=== PATIENT | female | born 1940 | race Caucasian/White ===

== ENCOUNTER 2023-03-28 11:34 | Emergency (ER) | payer OTHER, SELFPAY ==
[2023-03-28 11:50] VITALS: BP 108/63; PULSE 102; RESP 20; TEMP 37.2; O2SAT 97; BMI 24.8
--- NOTE | 2023-03-28 12:36 | ED.GENADULT ---
HPI - General Adult General Chief complaint: Skin/Abscess/Foreign Body Stated complaint: L arm infection Time Seen by Provider: 03/28/23 12:14 History of Present Illness HPI narrative: This 82-year-old female comes in because of redness and warmth in her left upper extremity that began this morning. She states that she had some nausea at that time but feels better now in that regard. She does have a history of breast cancer and had surgery about 30 years ago leaving her with lymphedema in the left upper extremity. She states that she has had cellulitis in the past. She arrives with normal vital signs. She has not had any fevers. She does have erythema in her left upper extremity extending from just distal from the axilla region past her left elbow. She does not have any chest pain or shortness of breath. Related Data Previous Rx's Medication Instructions Recorded cephalexin 500 mg capsule 500 mg PO TID 7 days #21 caps 03/28/23 Allergies Allergy/AdvReac Type Severity Reaction Status Date / Time No Known Drug Allergies Allergy Verified 03/28/23 11:49 Review of Systems Status of ROS: Reports: 10 or more systems reviewed and unremarkable except as noted in History and below Narrative: Constitutional: No fevers, no weight gain or loss. Eyes: No discharge. No vision changes. HENT: No congestion, no sore throat, no ear pain. Cardiovascular: No chest pain, no palpitations. Respiratory: No shortness of breath, no wheezes, no cough. Gastrointestinal: No abdominal pain, no vomiting, no diarrhea. Genitourinary: No dysuria, no hematuria. Musculoskeletal: Normal range of motion. Chronic left upper extremity lymphedema secondary to breast cancer surgery. Skin: No rashes, no pruritis. Redness and warmth in the left upper extremity. Neurological: No dizziness, weakness, sensory change, speech change. Endo/Heme/Allergies: No bruising or bleeding. No polydipsia. Pysch: no suicidality, no anxiety, no insomnia. All other systems reviewed and are negative. PFSH PFSH Social History Smoking Status: Former smoker Do you use any of these nicotine containing products: None Second hand tobacco smoke exposure: No How often do you have a drink containing alcohol: 2-4 times a month How many standard drinks containing alcohol do you have on a typical day: 1 or 2 How often do you have six or more drinks on one occasion: Never AUDIT-C Alcohol total score: 2 Non-prescribed substance use: denies use service: No Exam Narrative: Exam Narrative: Constitutional: Well-developed, well-nourished, no acute distress. HEENT: Normocephalic, atraumatic. Neck: Normal range of motion. Nontender. Supple. Heart: Regular. No murmurs. Normal rate. Intact distal pulses. Lungs: Clear to auscultation. No chest discomfort. No wheezes, rhonchi, or rales. Abdomen: Normal bowel sounds. Nontender. No rebound tenderness. Genitalia: Deferred. Back: No midline tenderness. Normal range of motion. Extremities: Normal range of motion. No injury. Erythema and warmth typical of cellulitis involving the left upper extremity. The erythema is involving most of her upper left arm from just distal of the axillary region extending to the area of her elbow and a bit into her forearm. Skin: Intact. No rash. Warm. No erythema or pallor. Neurologic: No altered sensation. No weakness. Alert and oriented. Psychiatric: No suicidality. No anxiety or depression. No insomnia. Nursing notes and vitals signs are reviewed. Const: Vital Signs, click to edit/add: Vital Signs - 24 hr 03/28/23 11:50 Temperature 99 F Pulse Rate [Pulse Oximeter] 102 H Respiratory Rate 20 Blood Pressure [Ri ght Upper Arm] 108/63 Pulse Oximetry 97 Oxygen Delivery Me thod Room Air Course Vital Signs Vital signs: Initial Vital Signs Temperature 99 F 03/28/23 11:50 Temperature Source Temporal Artery Scan 03/28/23 11:50 Pulse Rate 102 H 03/28/23 11:50 Pulse Rhythm Regular 03/28/23 11:50 Respiratory Rate 20 03/28/23 11:50 Blood Pressure 108/63 03/28/23 11:50 Blood Pressure Mean 78 03/28/23 11:50 Blood Pressure Position Supine 03/28/23 11:50 Pulse Oximetry 97 03/28/23 11:50 Oxygen Delivery Method Room Air 03/28/23 11:50 Vital Signs Temperature 99 F 03/28/23 11:50 Pulse Rate 102 H 03/28/23 11:50 Respiratory Rate 20 03/28/23 11:50 Blood Pressure 108/63 03/28/23 11:50 Pulse Oximetry 97 03/28/23 11:50 Oxygen Delivery Method Room Air 03/28/23 11:50 Temperature 99 F 03/28/23 11:50 Pulse Rate 102 H 03/28/23 11:50 Respiratory Rate 20 03/28/23 11:50 Blood Pressure 108/63 03/28/23 11:50 Pulse Oximetry 97 03/28/23 11:50 Oxygen Delivery Method Room Air 03/28/23 11:50 Medical Decision Making MDM Narrative Medical decision making narrative: This patient awoke this morning with erythema in her left upper extremity. She has had cellulitis in the past in this area which is predisposed to such because of chronic lymphedema. She does not have any systemic symptoms. I did discuss options of checking labs and imaging. She is agreeable to an injection of Rocephin intramuscularly and prescription for Keflex. I did describe signs and symptoms that would indicate a need for return and re-evaluation. Discharge Plan Discharge Clinical Impression: Cellulitis Condition: Unchanged Additional Instructions: Take medication as prescribed. Follow up with MD or return if not improving or worsening symptoms happen. Prescriptions: New cephalexin 500 mg capsule 500 mg PO TID 7 Days Qty: 21 0RF Stand Alone Forms: [facility] Info Instructions
[2023-03-28] MEDS: cefTRIAXone 1 GM VIAL IM (13:02)
[2023-03-28] MEDS: LIDOCAINE 1% 5 ml (pf) 5 ML VIAL 2.1 ML IM (13:03)
== END 2023-03-28 13:07 | disposition home or self-care (01) ==
PROVIDERS: Emergency Provider Emergency Medicine Emergency Medical Services; PCP Family Medicine
DX: L03.114 Cellulitis of left upper limb (principal)
CPT/HCPCS: 96372; 99283; 99284; J0696

== ENCOUNTER 2024-10-20 10:06 | Outpatient (CLI) | payer OTHER, SELFPAY | END 2024-10-20 10:07 | disposition home or self-care (01) | PROVIDERS: PCP Physician Assistant Medical; Visit Provider Physician Assistant Medical | DX: E03.9 Hypothyroidism, unspecified (principal); M81.0 Age-related osteoporosis without current pathological fracture; Z13.6 Encounter for screening for cardiovascular disorders; Z13.29 Encounter for screening for other suspected endocrine disorder; Z13.9 Encounter for screening, unspecified | CPT/HCPCS: 80053; 80061; 84439; 84443 ==

== ENCOUNTER 2024-12-25 08:23 | Outpatient (CLI) | payer OTHER, SELFPAY | END 2024-12-25 08:24 | disposition home or self-care (01) | LOC: FRMREF 08:26 | PROVIDERS: PCP Physician Assistant Medical; Visit Provider Nurse Practitioner Family | DX: R06.02 Shortness of breath (principal) | CPT/HCPCS: 83880 ==

== ENCOUNTER 2024-12-29 14:20 | Outpatient (CLI) | payer OTHER, SELFPAY | END 2024-12-29 14:21 | disposition home or self-care (01) | LOC: NFLDREF 12-31 02:38 | PROVIDERS: PCP Physician Assistant Medical; Referring Provider Physician Assistant Medical; Visit Provider Nurse Practitioner Family | DX: I50.9 Heart failure, unspecified (principal) | CPT/HCPCS: 83880 ==

== ENCOUNTER 2025-01-21 11:50 | Outpatient (CLI) | payer OTHER, SELFPAY | END 2025-01-21 11:51 | disposition home or self-care (01) | LOC: NFLDREF 01-26 15:57 | PROVIDERS: PCP Physician Assistant Medical; Referring Provider Physician Assistant Medical; Visit Provider Physician Assistant Medical | DX: E03.9 Hypothyroidism, unspecified (principal) | CPT/HCPCS: 84439; 84443 ==

== ENCOUNTER 2025-02-03 12:37 | Outpatient (CLI) | payer OTHER, SELFPAY ==
--- NOTE | 2025-02-03 13:00 | CRLHL7_ITS ---
For Patients: As a result of the Century Cures Act, medical imaging exams and procedure reports are released immediately into your electronic medical record. You may view this report before your referring provider. If you have questions, please contact your health care provider. INDICATION: UNILATERAL RIGHT SCREENING MAMMOGRAM, ASYMPTOMATIC 84 Y/O FEMALE COMPARISON: 01/08/2024, 12/25/2021, 12/22/2020 TECHNIQUE: Digital mammogram in CC and MLO projections including computer-aided detection (CAD) and tomosynthesis. BREAST COMPOSITION: The breasts are heterogeneously dense, which may obscure small masses. FINDINGS: No suspicious findings. ASSESSMENT: BI-RADS 1 Negative RECOMMENDATION: Annual screening mammogram. A lay language report of this examination will be provided to the patient. Dictated by: Omar Meyers MD @ 02/05/2025 11:46:40 (Electronically Signed)
--- NOTE | 2025-02-03 13:30 | CRLHL7_ITS ---
For Patients: As a result of the Century Cures Act, medical imaging exams and procedure reports are released immediately into your electronic medical record. You may view this report before your referring provider. If you have questions, please contact your health care provider. XR DXA Bone Mineral Density (BMD) Reason for exam: Age-related osteoporosis without current pathological fracture. Current height (in): 60.2. Weight (lb): 133.8. Menopause age: 41. Ethnicity: White. 1. Have you had a previous hip or vertebral fracture? No. 2. Have you had any fractures during your adult life which did not result from significant trauma (e.g., auto accident)? No. 3. Did either of your parents have a hip fracture? No. 4. Do you smoke? No. 5. Have you ever taken Glucocorticoids? No. 6. Do you have rheumatoid arthritis? No. 7. Do you have secondary osteoporosis? No. 8. Do you drink 3 or more alcoholic drinks per day? No. 9. Are you being treated for osteoporosis? No. 10. Have you ever taken any of the following medications: Actonel, Evista, Fosamax, Miacalcin, Reclast, Boniva, Forteo, HRT (i.e. estrogen/hormone therapy), Protelos, Prolia, Vitamin D, Calcium, other ??? please specify. ANSWER: Yes, Evista, Fosamax. 11. Do you have any of the following medical conditions: Anorexia or bulimia, asthma or emphysema, end stage renal disease, hyperparathyroidism, any seizure disorders, cancer, inflammatory bowel diseases, hysterectomy, other ??? please specify. ANSWER: No. 12. What was your maximum height (inches)? 63. 13. Do you perform weight bearing exercise regularly? No. 14. Do you regularly consume dairy products? No. 15. Do you drink caffeinated beverages? Yes. 16. At what age did your period start? 14. 17. Are you premenopausal? No. 18. How many full term pregnancies have you had? 4. 19. Have you ever missed your period for more than 6 months in a row (not including or menopause)? No. TECHNIQUE: Bone mineral density study was performed using the [employer]. FINDINGS: The results of the study expressed as bone mineral density (BMD) are as follows: Lumbar spine L1 to L4: BMD: 1.018 g/cm2. T-score: -0.3. Z-score: 2.6. Neck Left: BMD: 0.528 g/cm2. T-score: -2.9. Z-score: -0.4. Right: BMD: 0.551 g/cm2. T-score: -2.7. Z-score: -0.2. Total Left: BMD: 0.689 g/cm2. T-score: -2.1. Z-score: 0.2. Right: BMD: 0.746 g/cm2. T-score: -1.6. Z-score: 0.6. IMPRESSION: Osteoporosis. Omar Meyers M.D. Diagnostic Radiologist [email or web address] / bM/Dictated by: Omar Meyers MD @ 02/03/2025 3:37:00 PM (Electronically Signed)
== END 2025-02-03 12:38 | disposition home or self-care (01) ==
LOC: MAMMO 12:38
PROVIDERS: PCP Physician Assistant Medical; Visit Provider Physician Assistant Medical
DX: Z12.31 Encounter for screening mammogram for malignant neoplasm of breast (principal); R92.333 Mammographic heterogeneous density, bilateral breasts; M81.0 Age-related osteoporosis without current pathological fracture
CPT/HCPCS: 77063; 77067; 77080

== ENCOUNTER 2025-04-14 11:06 | Outpatient (CLI) | payer OTHER, SELFPAY | END 2025-04-14 11:07 | disposition home or self-care (01) | LOC: NFLDREF 04-19 02:39 | PROVIDERS: PCP Physician Assistant Medical; Referring Provider Physician Assistant Medical; Visit Provider Physician Assistant Medical | DX: E03.9 Hypothyroidism, unspecified (principal) | CPT/HCPCS: 84439; 84443 ==